=== PATIENT | female | born 1980 | race African-American/Black ===

== ENCOUNTER 2020-05-09 05:25 | Emergency (ER) | payer OTHER ==
[~2020-05-09] VITALS: Ht 152.4 cm; Wt 80.0 kg
[2020-05-09 05:46] VITALS: BP 116/82
--- NOTE | 2020-05-09 05:52 | PHYS DOC ---
Adult General Chief Complaint Chief Complaint: COUGH HPI HPI Patient is a 39-year-old female with a past medical history of asthma and chronic cough who presents with cough. States she has somewhat of a chronic cough over the last couple of years, intermittently but over the last day or 2 has had increased cough, and sputum. States she has had a little bit of wheeze as well. States he has been using her asthma medications at home with minimal relief. Denies any known ill contacts, recent travel, fevers, chest pain, shortness of breath, abdominal pain, nausea, vomiting, diarrhea. (RIZWANA URRUTIA MD) Review of Systems Review of Systems Review of systems otherwise unremarkable except noted in HPI (RIZWANA URRUTIA MD) Allergies Allergies Allergies Coded Allergies Type Severity Reaction Last Updated Verified No Known Drug Allergies 05/09/20 No (RIZWANA URRUTIA MD) Physical Exam Physical Exam Constitutional: Well developed, well nourished, no acute distress, non-toxic appearance. [] HENT: Normocephalic, atraumatic, bilateral external ears normal, oropharynx moist, no oral exudates, nose normal. [] Cardiovascular: Tachycardia, no murmur Lungs & Thorax: Mild bilateral rhonchi with end expiratory wheezing Abdomen: soft, no tenderness, no masses, no pulsatile masses. [] Skin: Warm, dry, no erythema, no rash. [] Extremities: No tenderness, no cyanosis, no clubbing, ROM intact, no edema. [] Neurologic: Alert and oriented X 3, normal motor function, normal sensory function, no focal deficits noted. [] Psychologic: Affect normal, judgement normal, mood normal. [] (RIZWANA URRUTIA MD) EKG EKG [] (RIZWANA URRUTIA MD) Radiology/Procedures Radiology/Procedures [] (RIZWANA URRUTIA MD) Heart Score Risk Factors: Risk Factors: DM, Current or recent (<one month) smoker, HTN, HLP, family history of CAD, obesity. Risk Scores: Risk Factors: DM, Current or recent (<one month) smoker, HTN, HLP, family history of CAD, obesity. (RIZWANA URRUTIA MD) Course & Med Decision Making Course & Med Decision Making Patient is a 39-year-old female who presents with a chief complaint of cough, with sputum and wheezing Vital signs notable for tachycardia, most likely secondary to albuterol use. Physical exam noted above. Patient given breathing treatment and steroids in the ED. Patient care transferred to day team. [] (RIZWANA URRUTIA MD) Course & Med Decision Making Accepted patient care at shift change. Pending nebulizer treatment and x-ray reading. X-ray read as normal, no infiltrates. After nebulizer symptoms improved. Discussed follow-up with patient. (AVNI JOYA MD) Dragon Disclaimer Dragon Disclaimer This electronic medical record was generated, in whole or in part, using a voice recognition dictation system. (RIZWANA URRUTIA MD) Departure Departure: Impression: Primary Impression: Cough Additional Impression: Asthma exacerbation Disposition: 01 DC HOME SELF CARE/HOMELESS Condition: GOOD Referrals: PCP,NO (PCP) NETO BERMUDEZ MD Patient Instructions: Asthma Attacks, Prevention, Asthma, Acute Bronchospasm Additional Instructions: Please read all the attached information. Please continue to use your asthma medications at home as prescribed. Please call the number provided to establish care with a local primary care physician first thing today when you get home and set up an appointment as soon as possible, and inquire about getting a nebulizer for home. Please come back to the ED with new or concerning symptoms. Scripts Prednisone (PREDNISONE) 50 Mg Tablet 1 TAB PO DAILY for steroid, #4 TAB You received this medication in the emergency room today. You will starting your next dose tomorrow. Prov: AVNI JOYA MD 05/09/20 Problem Qualifiers RIZWANA URRUTIA MD May 09, 2020 05:52 AVNI JOYA MD May 09, 2020 07:01
[2020-05-09] MEDS ORDERED: IPRATRPIUM/ALBUTEROL 0.5/2.5MG 3 ML NEBU. NEB ONE (06:30)
[2020-05-09] MEDS ORDERED: DEXAMETHASONE 4 MG TABLET PO ONE (06:30)
--- NOTE | 2020-05-09 06:31 | RAD ---
EXAM: CHEST ONE VIEW. HISTORY: Persistent cough, asthma. COMPARISON: None. FINDINGS: A frontal view of the chest is obtained. There are no confluent infiltrates. There is no pneumothorax or pleural effusion. The heart is not en larged. IMPRESSION: 1. No confluent infiltrates. Electronically signed by: Ger Hernandez MD (05/09/2020 6:29 AM) [facility]
[2020-05-09] MEDS ORDERED: PRED50TA PO (07:01)
== END 2020-05-09 07:05 | disposition home or self-care (01) ==
LOC: ER 05:25
DX: J45.901 Unspecified asthma with (acute) exacerbation (principal)
CPT/HCPCS: 71045; 94640; 99283; J8540